=== PATIENT | male | born 1970 | race Caucasian/White ===

== ENCOUNTER 2018-04-13 03:42 | Inpatient (IN) | payer OTHER, SELFPAY ==
--- NOTE | 2018-04-13 04:58 | PDOC.FPRHP ---
Addendum entered and electronically signed by Sridevi Gloria DO 04/13/18 10 :10: Code status: Full Unable to rec pt meds: He states that he is on 30 mg morphine BID and [place] 5/ 325 as needed for breakthrough pain. He is also taking zofran but is uncertain of dose. He received chemotherapy [id number]. Original Note: - History of Present Illness Chief Complaint: Shortness of breath, Fever, Cough History of Present Illness: 48 year old male with PMH significant for biliary duct cancer diagnosed in January of 2018 that presents with a two day history of cough, fever, and right rib pain. Patient states he had a tmax of 100.5 F at home. He has a non- productive and right rib pain which is much worse with taking deep breath and with movement. This has acutely worsened over the last day. Patient was otherwise feeling fine up until two days ago. He gets fatigued and has occasional nausea and vomiting since starting chemotherapy. Patient denies any substernal chest pain, headaches, diaphoresis, swelling, or abdominal pain. Patient follows with the [facility] for [facility] medical care. Attempts were made to transfer patient to [facility] from outside ED, but [facility] did not have any beds available. Patient has been receiving chemotherapy since February. His sessions are every 21 days. He is due for chemotherapy tomorrow. Patient has received 2 weeks worth of antibiotics in the last 90 days. ED Course: Patient was transferred from [place] [facility] where he received antibiotics ( cefepime 2g, vancomycin 1g), zofran 4 mg, lovenox 1 mg/kg, morphine 16 mg, NS 2L bolus, NS @ 150 ml/hr, Tylenol 650 mg. - Allergies/Adverse Reactions Allergies Allergy/AdvReac Type Severity Reaction Status Date / Time No Known Allergies Allergy Unverified 04/13/18 06:26 - History PMHx: Biliary duct cancer diagnosed 01/2018 and currently on chemotherapy q21 days PSHx: Appendectomy, Tonsillectomy, Right hernia repair FHx: Non-contributory Social: Patient endorses smoking 1/2 PPD for over thirty years. Quit smoking 3 weeks ago. Denies drug or alcohol use. - Review of Systems General: reports: fever/chills, weight/appetite/sleep changes, fatigue Eyes: denies: eye pain, vision changes ENT: denies: nasal congestion, rhinorrhea Respiratory: reports: cough, congestion, shortness of breath. denies: exercise intolerance Cardiovascular: denies: chest pain, palpitation, edema, paroxysmal nocturnal dyspnea Gastrointestinal: reports: nausea, vomiting, abdominal pain. denies: diarrhea, constipation, GI bleeding Genitourinary: denies: dysuria, polyuria Skin: denies: rashes, lesions, jaundice Musculoskeletal: denies: pain, tenderness, stiffness, arthritis/arthralgias Neurological: reports: weakness. denies: numbness, syncope, seizure Psychological: denies: anxiety, depression - Vital signs BP: 115/77 HR: 115 RR: 28 Tmax: 98.4 Pox: 96% on RA Wt: 79.83 kg - Physical Exam Constitutional: awake, alert and oriented, well developed -Constitutional: Appears in moderate distress when changing positions or taking deep breaths HEENT: normocephalic and atraumatic, PERRLA, EOMI, conjunctiva clear, no scleral icterus, normal nasal mucosa, MMM, oropharynx clear, good dention Neck: supple, trachea midline Heart: RRR, no murmurs/rubs/gallops, pulses present, no edema Lungs: no respiratory distress, no wheezing -Lungs: Rales right lower lung base. Pain in right lower ribs with deep inspiration Musculoskeletal: normal structure, normal tone -Musculoskeletal: Pain with movement and deep breaths in right lower ribs. Tender to palpation along right lower ribs. Neurological: no focal deficit, CN II-XII intact Skin: no rash/lesions, good turgor, capillary refill <2 seconds Heme/Lymphatic: no unusual bruising or bleeding, no purpura, no petechia Psychiatric: normal mood and affect, good judgment and insight, intact recent and remote memory FMR H&P: Results - Labs Result Diagrams: 04/13/18 07:07 - Radiology Interpretation Chest x-ray Status: image reviewed by me, report reviewed by me Additional comment: Right basilar infiltrate c/w pneumonia Other Status: report reviewed by me Additional comment: Abdomen/pelvis CT: Multiple hepatic masses which have increased in size January. Right lower lobe infiltrate. Some assymetry in filling of lower lobe pulmonary arteries on right compared to left. FMR H&P: A/P - Problem List (1) Sepsis Current Visit: Yes Status: Acute Code(s): A41.9 - SEPSIS, UNSPECIFIED ORGANISM (2) CAP (community acquired pneumonia) Current Visit: Yes Status: Acute Code(s): J18.9 - PNEUMONIA, UNSPECIFIED ORGANISM (3) Cancer of biliary duct or passage Current Visit: Yes Status: Chronic Code(s): C24.0 - MALIGNANT NEOPLASM OF EXTRAHEPATIC BILE DUCT (4) Tobacco abuse Current Visit: Yes Status: Acute Code(s): Z72.0 - TOBACCO USE - Plan 1. Sepsis 2/2 community acquired pneumonia in immunocompromised patient - Elevated RR, HR, and WBC - RLL infiltrate on CXR and CT - Pt started on Vancomycin and Cefepime in outside ED. Will continue Cefepime for immunocompromised state and Vancomycin since patient has taken antibiotics in the last 90 days. - Adequately fluid resuscitated with 2 L NS in outside ED - Maintenance IVF with NS @ 125 ml/hr - Procalcitonin pending - LA nml - Blood cultures pending - Toradol given for inflammation/pleuritis 2. CAP in immunocompromised patient - See plan as above - CURB65 of 0 3. Biliary duct cancer with metastasis - Continue home medications - CT abdomen/pelvis shows enlarging liver masses since 02/14 - Patient on chemotherapy q21 days since February. He is due for chemotherapy on - Advise patient to touch base with specialists regarding chemotherapy - Alk phosph and ALT slightly elevated 4. Tobacco abuse - 30 year history of 1/2 PPD, quit 3 weeks ago Dispo: Admit to oncology. Anticipate stay of >48 hours. FMR H&P: Upper Level - Pertinent history 48 yo CM with PMHx stage IV biliary duct cancer diagnosed 02/14 presented to outside ED with complaint of worsening SOB, cough, and R chest wall pain. Symptoms began 2 days ago and have only worsened. Endorses fever at home to 100.5. No measured fever in ED. Nonproductive cough. Unable to take deep breaths due to R rib pain. He is actively receiving chemotherapy for metastatic bile duct cancer with all care going through [facility]. Endorses receiving 2 wks of antibiotics over last 90 days. Met septic criteria for elev WBC, HR, and RR. Given abx and fluids in [facility] and transferred here. - Pertinent findings Gen: alert, NAD, significant pain when breathes deep Lungs: shallow breathing 2/2 pain; coarse rales in RLL; otherwise CTAB; TTP over this area CV: RRR, no m/r/g Abd: soft, voluntary guarding in epigastric and RUQ 2/2 pain over R ribs; non- distended, no rebound Ext: no edema Skin: cap refill <2 secs - Plan Date/Time: 04/13/18 0454 1. Sepsis 2/2 CAP. Elevated WBC, HR, and RR in outside ED. Received abx and IV fluids. Due to immunocompromised status (recent chemo treatments) and abx in last 90 days, increased risk of MDR organisms. Treat broadly with cefepime, Levaquin, and vancomycin for now. Vanc solely due to recent abx use. Check BCx. Lactate normal. Pending procalcitonin. May step down therapy pending this result. Responded to 2L NS so sepsis appears mild in nature and already resolved. Continue IV fluids. Admit to oncology with expected 2-3 day stay. 2. CAP. See above. CURB-65 of 0. Found on exam and confirmed with CT and CXR. Pain control with toradol and opiates. 3. Metastatic biliary cancer. [facility] so will remain here. Supposed to receive chemo 04/13. Will have pt reach out to his specialists about this. Immunocompromised due to active chemo. Liver mets have enlarged since last imaging in 02/14 in light of chemo. Alk phos and ALT slightly elevated. Continue home opiates and add breakthrough prns. 4. Tobacco abuse. Recently quit per pt. Continue encouraging cessation. I, Mitch Jimenez, have evaluated this patient and agree with findings/plan as outlined by food and beverage intern resident. Pertinent changes/additions are listed here.
[2018-04-13] MEDS ORDERED: Morphine 4 MG/ML VIAL ONE (05:10)
[2018-04-13] MEDS ORDERED: Ondansetron ODT 4 MG TAB ONE (05:10)
[2018-04-13] MEDS ORDERED: Cefepime 2 GM in Sodium Chloride 0.9% 100 ML IVPB SCH ×3 (07:00→14:00)
[2018-04-13] MEDS ORDERED: Acetaminophen 325 MG TAB PO PRN (07:01)
[2018-04-13] MEDS ORDERED: Ondansetron HCl/PF 4 MG/2 ML Vial IVP PRN ×2 (07:01→07:05)
[2018-04-13] MEDS ORDERED: Ibuprofen 800 MG TAB PO PRN (07:01)
[2018-04-13] MEDS ORDERED: Ketorolac Tromethamine 30 MG/ML VIAL IVP SCH (07:01)
[2018-04-13] MEDS ORDERED: Sodium Chloride 0.9% 1,000 ML IV SCH (07:05)
[2018-04-13] MEDS ORDERED: Ondansetron ODT 4 MG TAB SL PRN (07:05)
[2018-04-13 07:20] LABS: #Eosinphils 0.1 thou/uL (0.0-0.7); #Lymphocytes 1.1 thou/uL (1.20-3.40); #Monocytes 1.2 thou/uL (0.11-0.59); #Neutrophils 10.7 thou/uL (1.40-6.50); %Basophils 0.3 % (0.0-1.0); %Eosinophils 0.9 % (0.0-10.0); %Lymphocytes 8.3 % (21.0-51.0); %Monocytes 9.4 % (0.0-10.0); %Neutrophils 81.2 % (42.0-75.0); Mean Corpuscular HGB CONC 34.1 g/dL (32.0-36.0); Mean Corpuscular Hemoglobin 30.7 pg (27.0-31.0); Mean Platelet Volume 6.8 fL (7.4-10.4); Platelet Count 138 thou/uL (130-400); RBC Distribution Width 11.9 % (11.5-14.5); White Blood Cell (WBC) Count 13.1 thou/uL (4.8-10.8)
[2018-04-13 07:40] LABS: Anion Gap 15 mmol/L (10-20); BUN (Urea Nitrogen) 12 mg/dL (8.9-20.6); Calc. Creatinine Clearance 0 mL/min (70-130); Calcium 8.8 mg/dL (7.8-10.44); Carbon Dioxide 20 mmol/L (22-29); Chloride 100 mmol/L (98-107); Estimated GFR-MDRD Greater than 90; Glucose 104 mg/dL (70-105); Potassium 4.2 mmol/L (3.5-5.1); Sodium 131 mmol/L (136-145)
[2018-04-13] MEDS ORDERED: Vancomycin HCl 1 GM in Premix Bag 1 BAG IVPB SCH (08:00)
[2018-04-13] MEDS: Enoxaparin Sodium 40 MG/0.4 ML SYRINGE SC SCH ×2 (08:07→11:54)
[2018-04-13 08:39] VITALS: BMI 22.9
[2018-04-13] MEDS ORDERED: Enoxaparin Sodium 80 MG/0.8 ML SYRINGE SC SCH ×2 (09:00→12:00)
[2018-04-13] MEDS ORDERED: Vancomycin HCl 1.25 GM in Sodium Chloride 0.9% 250 ML 250 ML IVPB SCH (09:00)
[2018-04-13] MEDS: HYDROcodone/Acetaminophen 10/325 mg Tablet PO PRN ×2 (10:36→16:22)
[2018-04-13] MEDS: Sodium Chloride 0.9% 1,000 ML IV SCH ×4 (10:39→23:31)
[2018-04-13] MEDS: Ondansetron ODT 4 MG TAB PO PRN (11:01)
--- NOTE | 2018-04-13 11:14 | CT ---
CT ARTERIOGRAM CHEST WITH IV CONTRAST AND 3D MIP IMAGING: Date: 04/13/18 HISTORY: Chest pain. Dyspnea. Abnormal outside CAT scan. COMPARISON: CT abdomen from 04/12/18 [facility]. FINDINGS: Large filling defects within the pulmonary arteries of the right lung extends to the bifurcation of t he right pulmonary artery. There is near complete blockage of flow to the right lower lobe with infil trate and atelectasis within the right lower lobe. There is incomplete occlusion of the right upper l obe pulmonary arteries. Small cylindrical filling defects are present within left lower lobe pulmonary arteries. Small amount of right pleural fluid. Multiple small nodules throughout each lung have the appearance of metastatic disease. The largest is a 0.9 cm nodule at the left posterolateral lung base. There is thickening of the esophagus and hiata l hernia apparent. Multiple low density masses are demonstrated throughout the liver. IMPRESSION: 1. High burden pulmonary embolus involving the right lower lobe with additional small emboli right u pper lobe and left lower lobe. 2. Metastatic disease of the liver and lungs. Findings called to Sherry, the patient's nurse, at 0932 hours. CODE CR. POS: TPC
[2018-04-13] MEDS ORDERED: Enoxaparin Sodium 40 MG/0.4 ML SYRINGE SC SCH (11:15)
--- NOTE | 2018-04-13 12:29 | HP ---
I have reviewed the history and physical with Dr. Sridevi Gloria and discussed the case with her. I agree with her assessment and plan. HISTORY OF PRESENT ILLNESS: Briefly, Mr. Rony eMdina is a 48-year-old white male patient recently yong gnosed with metastatic biliary duct cancer. He presented to a local ER with a 2-day history of fever , cough, and right rib pain. He was noted to have a right lower lobe infiltrate consistent with poss ible pneumonia, although pulmonary embolus could be completely excluded. He was subsequently transfe rred to [facility] for further evaluation and treatment. PHYSICAL EXAMINATION: VITAL SIGNS: His blood pressure is 120/70, his heart rate is 100, respirations now 14. He is afebri le. Room air pulse ox is 96%. GENERAL: Currently, he is awake, alert, in no distress. EAR, NOSE, AND THROAT: No erythema or exudate. No icterus. NECK: Supple. CARDIAC: Heart rhythm regular. No gallop or murmur noted. LUNGS: Rales in the right lower lung base, no rub. ABDOMEN: Flat and soft without guarding, rebound or rigidity. EXTREMITIES: No edema. NEUROLOGIC: No focal deficits. LABORATORY DATA: CBC: White count is 13,100, hemoglobin is 11, hematocrit is 32.4 with an MCV of 90 . Chemistries: Sodium 131, potassium 4.2, chloride 100, bicarbonate 20, BUN 12, creatinine 0.73. C hest x-ray shows a right lower lobe infiltrate. Cannot exclude PE. ASSESSMENT: Probable community-acquired pneumonia. PLAN: Given his immunosuppressed state, he will be started on broad-spectrum antibiotics. We have o rdered and waiting upon the results of a chest CTA to rule out pulmonary embolus. In the event, he w as started on Lovenox at the outside Emergency Department.
[2018-04-13] MEDS ORDERED: ISOVUE-370 76%-LOCM 1 ML ONE (12:32)
[2018-04-13] MEDS: Vancomycin HCl 1.25 GM in Sodium Chloride 0.9% 250 ML 250 ML IVPB SCH (13:18)
[2018-04-13] MEDS: Cefepime 2 GM in Sodium Chloride 0.9% 100 ML IVPB SCH (16:22)
[2018-04-13] MEDS: Enoxaparin Sodium 80 MG/0.8 ML SYRINGE SC SCH (21:29)
[2018-04-13] MEDS: Morphine ER 30 MG TAB PO SCH (21:36)
[2018-04-13] MEDS ORDERED: Metoclopramide HCl 10 MG/2 ML VIAL IVP PRN (23:07)
[2018-04-13] MEDS ORDERED: Melatonin 3 MG TAB PO PRN (23:08)
[2018-04-14] MEDS: Cefepime 2 GM in Sodium Chloride 0.9% 100 ML IVPB SCH ×2 (00:32→08:08)
[2018-04-14] MEDS: HYDROcodone/Acetaminophen 10/325 mg Tablet PO PRN ×4 (00:38→15:04)
[2018-04-14] MEDS: Vancomycin HCl 1.25 GM in Sodium Chloride 0.9% 250 ML 250 ML IVPB SCH (01:56)
--- NOTE | 2018-04-14 06:25 | PDOC.FM ---
- Subjective Subjective: Patient states the pain is mildy improved today. He states the pain is still severe when he coughs. He denies any hemoptysis. Patient also denies any new complaints. No other complaints this morning. - Objective Vital Signs & Weight: Vital Signs (12 hours) Temp Pulse Resp BP Pulse Ox 04/14/18 04:00 97.9 F 79 16 112/65 95 04/14/18 00:00 98.1 F 94 16 105/66 96 04/13/18 20:00 98.2 F 84 16 110/69 96 Weight Admit Weight 79.016 kg Weight 79 kg I&O: 04/12/18 04/13/18 04/14/18 06:59 06:59 06:59 Intake Total 1815 Output Total 800 Balance 1015 Result Diagrams: 04/14/18 06:36 04/14/18 06:36 Phys Exam - Physical Examination Constitutional: NAD HEENT: moist MMs Neck: no nodes Respiratory: no wheezing, clear to auscultation bilateral Cardiovascular: RRR, no significant murmur Gastrointestinal: soft, non-tender, no distention, positive bowel sounds Musculoskeletal: no edema, pulses present Neurological: non-focal, normal sensation, moves all 4 limbs Lymphatic: no nodes Psychiatric: normal affect, A&O x 3 Skin: no rash Dx/Plan (1) Pulmonary embolism Code(s): I26.99 - OTHER PULMONARY EMBOLISM WITHOUT ACUTE COR PULMONALE Status : Acute (2) Tobacco abuse Code(s): Z72.0 - TOBACCO USE Status: Acute (3) Cancer of biliary duct or passage Code(s): C24.0 - MALIGNANT NEOPLASM OF EXTRAHEPATIC BILE DUCT Status: Chronic - Plan Plan: 1. Pulmonary Embolism - CTA revealed PE in RLL - Antibiotics D/C due to findings of PE and lack of infectious findings - Adequately fluid resuscitated with 2 L NS in outside ED - Maintenance IVF with NS @ 125 ml/hr - Procalcitonin negative - LA nml - Blood cultures pending - Toradol given for inflammation/pleuritis 2. Biliary duct cancer with metastasis - Continue home medications - CT abdomen/pelvis shows enlarging liver masses since 02/14 - Patient on chemotherapy q21 days since February. He is due for chemotherapy on - Advise patient to touch base with specialists regarding chemotherapy - Alk phosph and ALT slightly elevated 4. 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
[2018-04-14 06:58] LABS: #Eosinphils 0.2 thou/uL (0.0-0.7); #Lymphocytes 1.1 thou/uL (1.20-3.40); #Monocytes 1.2 thou/uL (0.11-0.59); #Neutrophils 10.2 thou/uL (1.40-6.50); %Basophils 0.1 % (0.0-1.0); %Eosinophils 1.4 % (0.0-10.0); %Lymphocytes 8.6 % (21.0-51.0); %Monocytes 9.7 % (0.0-10.0); %Neutrophils 80.3 % (42.0-75.0); Hemoglobin 10.4 g/dL (14.0-18.0); Mean Corpuscular HGB CONC 34.4 g/dL (32.0-36.0); Mean Corpuscular Volume 90.2 fl (80.0-94.0); Mean Platelet Volume 6.5 fL (7.4-10.4); Platelet Count 145 thou/uL (130-400); RBC Distribution Width 11.9 % (11.5-14.5); Red Blood Cell (RBC) Count 3.37 mill/uL (4.70-6.10); White Blood Cell (WBC) Count 12.8 thou/uL (4.8-10.8)
[2018-04-14 07:17] LABS: ALT (SGPT) 41 U/L (8-55); AST (SGOT) 26 U/L (5-34); Albumin 2.8 g/dL (3.5-5.0); Alkaline Phosphatase 297 U/L (40-150); Anion Gap 13 mmol/L (10-20); BUN (Urea Nitrogen) 9 mg/dL (8.9-20.6); Bilirubin, Total 0.5 mg/dL (0.2-1.2); Calc. Creatinine Clearance 135 mL/min (70-130); Calcium 8.9 mg/dL (7.8-10.44); Carbon Dioxide 24 mmol/L (22-29); Chloride 100 mmol/L (98-107); Estimated GFR-MDRD Greater than 90; Glucose 99 mg/dL (70-105); Potassium 4.1 mmol/L (3.5-5.1); Protein, Total 5.8 g/dL (6.0-8.3); Sodium 133 mmol/L (136-145)
[2018-04-14] MEDS: Sodium Chloride 0.9% 1,000 ML IV SCH ×2 (07:36→15:08)
[2018-04-14] MEDS: Enoxaparin Sodium 80 MG/0.8 ML SYRINGE SC SCH (08:13)
[2018-04-14] MEDS: Morphine ER 30 MG TAB PO SCH (08:13)
[2018-04-14] MEDS ORDERED: Enoxaparin Sodium 80 MG/0.8 ML SYRINGE SC SCH (09:00)
[2018-04-14] MEDS ORDERED: Docusate 100 MG CAP PO SCH (09:00)
[2018-04-14] MEDS ORDERED: Enoxaparin Sodium 40 MG/0.4 ML SYRINGE SC SCH (09:00)
[2018-04-14] MEDS: Ondansetron ODT 4 MG TAB PO PRN ×2 (10:09→16:15)
[2018-04-14] MEDS ORDERED: Non-Formulary Item 1 EACH (Prochlorperazine Maleate [Prochlorperazine Maleate] 10 MG) PO PRN (10:35)
[2018-04-14] MEDS ORDERED: Prochlorperazine Maleate 5 MG TAB PO PRN (10:42)
[2018-04-14 12:12] VITALS: BP 109/64; TEMP 97.6
--- NOTE | 2018-04-14 14:15 | ADD-PRG ---
DATE OF SERVICE: 04/14/2018 Please add this as an addendum to the note of Dr. Burton Torres. Mr. Medina did undergo his CTA ye sterday morning. The impression was there was a high-burden pulmonary embolus involving the right lo wer lobe with additional small emboli in the right upper lobe and left lower lobe. It also demonstra gaby metastatic disease of the liver and lungs. We are currently in discussion with Mr. Medina and hi s family about [facility] him for either Xarelto or Eliquis for i nsurance reasons. In the event, Mr. Medina is asymptomatic. He is having no shortness of breath and his pain is well controlled on his current regimen. We will await discussions of the family with [facility] to see if they can get [facility] for a DOAC. If not, we will bridge him with Coumadin.
--- NOTE | 2018-04-15 14:22 | DIS-2 ---
DATE OF ADMISSION: 04/13/2018 DATE OF DISCHARGE: 04/14/2018 RESIDENT: Burton Torres M.D. ADMITTING ATTENDING: More Walsh M.D. DISCHARGE ATTENDING: Toribio Limon M.D. CONSULTATIONS: OT and PT evaluation and treatment. PROCEDURES: The patient underwent a chest thorax CTA on 04/13/2018, showed high burden pulmonary embolus involving the right lower lobe with additional small emboli, right upper lobe and left lower lobe, metastatic disease of the liver and lungs. PRIMARY DIAGNOSES: 1. Pulmonary embolism. 2. Tobacco abuse. 3. Stage 4 cancer of the biliary duct. DISCHARGE MEDICATIONS: 1. Ondansetron 8 mg p.o. q.6 hours p.r.n. 2. Prochlorperazine 10 mg p.o. q.6. hours p.r.n. 3. Colace 100 mg p.o. daily. 4. Morphine sulfate 30 mg p.o. b.i.d. 5. [place] 10 mg/325 mg 1 tab p.o. q.4 hour p.r.n. 6. Cisplatin 100 mg per vial. 7. Gemcitabine HCL 100 mg per vial. 8. Eliquis 5 mg p.o. as directed. DISCONTINUED MEDICATIONS: None. HISTORY OF PRESENT ILLNESS AND HOSPITAL COURSE: This is a 48-year-old male with past medical history significant for biliary duct cancer, diagnosed in 2017 that presents with 2-day history of cough, fever, and right rib pain. Patient states he had a T-max 100.5 at home. He has had nonproductive and right rib pain, which is much worse when taking deep breath and with movement. This was acutely worsened over the last day. The patient was otherwise feeling fine up to 2 days ago. He gets fatigued and occasionally nauseous and vomits since starting chemotherapy. Patient denies any substernal chest pain, headaches, diaphoresis, swelling, or abdominal pain. The patient follows with the [facility] for his medical care. Attempts were made to transfer the patient to the [facility] from the outside Emergency Department with the [facility] did not have any beds available. Patient has been receiving chemotherapy since February. His sessions are every 21 days. He is due for chemotherapy tomorrow. Patient received 2 weeks of antibiotics in last 90 days. Patient was transferred from the [place] ED where he received broad spectrum antibiotic, Zofran, Lovenox 1 mg/kg , morphine, normal saline 2 liter bolus and Tylenol 750 mg. The patient at the outside ED underwent an abdominal CT scan that did pickle pumper some filling defects and recommended further evaluation for pulmonary embolism with a CTA. Upon arrival to [facility] in the [facility], the patient did undergo a chest CTA and was found to have a multiple pulmonary embolism. The patient has a notable lab values of a white blood cell count of 13.1, then trended down to 12.8 and a procalcitonin of 0.15. This is being essentially rules out any sort of infectious cause and after presenting the case to the radiology department and having further clarification, there was no evidence of infiltration on the CTA. The CTA did review several signs of pulmonary infarction and pulmonary embolus and so at that time it was decided the patient needed to be on anticoagulation for his pulmonary embolism and not any broad- spectrum antibiotics. The patient was started on Eliquis to be used as directed , to be followed up at the [facility]. Patient was advised that he will likely need to be on anticoagulation therapy for the remainder of his life or the remainder of the time that he has a cancer. Patient was otherwise agreeable to this plan and was anxious to get out of the hospital. He was approved for 3 months of Eliquis and then was approved by his PCP, Dr. Roblero at the [facility] to continue Eliquis going forward. Patient otherwise had no further complications during this hospitalization with discharge in appropriate condition. DISPOSITION: Stable. DISCHARGE INSTRUCTIONS: 1. Location he will be discharged home under the care of himself and his family. 2. Diet will be as tolerated with no restrictions. 3. Activity will be as tolerated with no restrictions. 4. Follow up will be with his PCP, Dr. Roblero at the [facility] in [place] in 3 days to discuss further management of his chemotherapy regimen and his newly found pulmonary embolisms. MTDD
== END 2018-04-14 17:44 | disposition home or self-care (01) | DRG 176 ==
LOC: ERS 03:42 → T4-B 04:30
PROVIDERS: ADMIT Family Medicine; ATTEND Family Medicine
DX: I26.99 Other pulmonary embolism without acute cor pulmonale (principal); C78.00 Secondary malignant neoplasm of unspecified lung; C24.0 Malignant neoplasm of extrahepatic bile duct; Z87.891 Personal history of nicotine dependence
CPT/HCPCS: 36415; 71275; 80048; 80053; 84145; 85025; 96361; 96374; A4216; G8978-GP-CJ; G8979-GP-CI; J0692; J1650; J1956; J2270; J2405; J3370; J7050; Q0162; Q0164